=== PATIENT | female | born 1950 | race Caucasian/White ===

== ENCOUNTER 2017-02-17 07:46 | Emergency (ER) | payer MEDICARE, OTHER ==
[2017-02-17] MEDS ORDERED: ASPIRIN 81 MG TAB.CHEW PO ONE (07:53)
--- NOTE | 2017-02-17 07:59 | ERNOTE ---
Chest Pain/Cardiac HPI Chief Complaint: Chest Pain Time Seen by Provider: 02/17/17 07:52 Source: patient, RN notes reviewed Exam Limitations: no limitations Immunizations: IMMUNIZATION HX Immunizations Up to Date Yes History of Influenza Vaccine Yes Hx Pneumococcal Vaccination No Allergies/Adverse Reactions: Allergies No Known Allergies Allergy (Verified 02/17/17 08:08) Home Medications: HOME MEDICATIONS NK [No Home Medication] 02/17/17 [Last Taken Unknown] Narrative: Patient woke up with pain across her back, in a cold sweat. She had a pneumonia vaccination a week ago Sunday. She notes that her left arm hurt really bad a week ago yesterday (the day she received the vaccination), and has hurt ever since. She has not been using her left arm since that vaccination. She drove out here earlier, but the pain subsided so she and her spouse went back home. She then decided maybe she should get checked out after all, so they came back here and checked in. Her pain is gone now, but her left arm and shoulder up into her neck, still are in pain from the injection. Timing: resolved prior to arrival Severity/Quality: severe Location: back Chest Pain Radiation: shoulders Activities at Onset: sleep Nitro Today/Relief: no nitro taken today Aspirin Treatment Today: 81 mg x 4, provided by ED Associated Symptoms: Present: denies symptoms Prior Chest Pain/Cardiac Workup: Reports: no prior cardiac workup Prior Treatment: Reports: recently seen, treated by physician - Shanique Hilton Review of Systems - Review of Systems Constitutional: Present: recent illness - sore arm and shoulder since pneumonia vaccine. Absent: fever, chills, weakness EYE: Present: no symptoms reported ENT: Absent: ear pain, sore throat Respiratory: Absent: shortness of breath, cough Cardiology: Present: chest pain - tightness Gastrointestinal/Abdominal: Absent: nausea, vomiting, diarrhea, abdominal pain Genitourinary: Absent: frequency, pain, dysuria, hematuria Musculoskeletal: Present: back pain - bilateral and woke her up from sleep, muscle pain - left sided since pneumonia vaccine, muscle stiffness - left sided since pneumonia vaccine, neck pain - left sided since pneumonia vaccine Skin: Absent: rash, lesions, lumps Neurological: Present: anxiety. Absent: depressed Endocrine: Present: no symptoms reported Hematologic/Lymphatic: Present: no symptoms reported Psych: Present: anxiety - Patient's Past Medical History Patient History - Medical: No pertinent hx Patient History - Cardiac/Respiratory: No pertinent hx Patient History - Cancer: No Hx of Cancer Patient History - Surgical Procedures: Cholecystectomy, T & A Patient History - Other: None - Family History Mother Family History - Medical: , No pertinent hx Family History - Cardiac/Respiratory: No pertinent hx Father Family History - Medical: , No pertinent hx Family History - Cardiac/Respiratory: No pertinent hx, CVA/Stroke - Social History Abuse History: No History of abuse Psych History: No pertinent hx - Immunizations Immunizations Up to Date: Yes Hx Pneumococcal Vaccination: No History of Influenza Vaccine: Yes Physical Exam - Physical Exam General Appearance: Present: wd/wn, alert, no apparent distress Head Exam: Present: normal inspection, no evidence of injury Eye Exam: Normal inspection: bilateral, PERRL: bilateral, EOMI: bilateral Ears, Nose, Throat: Present: normal ENT inspection Neck: Present: limited range of motion - secondary to muscle spasms on left side Respiratory: Present: no respiratory distress, normal breath sounds, no accessory muscle use, chest nontender, lungs clear Cardiovascular/Chest: Present: regular rate, rhythm, no murmur, normal peripheral pulses Gastrointestinal/Abdominal: Present: normal bowel sounds, nontender, nondistended, soft, no organomegaly Back Exam: Present: normal inspection, normal range of motion Extremity Exam: Present: normal inspection, non-tender, normal range of motion, no edema Neurological Exam: Present: alert, oriented, normal mood/affect, no motor/ sensory deficits Skin Exam: Present: normal color, warm/dry Lymphatic Exam: Present: no adenopathy ED Progress - Results and Orders Patient's Lab Results:: I have reviewed the patient's lab results. Results and Orders: Laboratory Tests 02/17/17 02/17/17 08:00 08:00 WBC 6.4 RBC 4.56 Hgb 13.3 Hct 40.2 MCV 88.2 MCH 29.2 MCHC 33.1 RDW 12.5 Plt Count 172 MPV 9.5 Immature Gran % (Auto) 0.50 H Immature Gran # (Auto) 0.03 Neutrophils % 62.9 Lymphocytes % 23.2 Monocytes % 9.5 H Eosinophils % 3.3 H Basophils % 0.6 Nucleated RBC % 0.0 Neutrophils # 4.0 Lymphocytes # 1.5 Monocytes # 0.6 Eosinophils # 0.2 Absolute Basophils 0.0 Sodium 141 Plasma Sodium 141 Potassium 4.0 Chloride 104 Carbon Dioxide 30.3 Anion Gap 10.7 BUN 14 Creatinine 0.93 Est GFR (Non-Af Amer) 64 BUN/Creatinine Ratio 15.1 Random Glucose 97 Calcium 9.0 Calcium Adj for Albumin 9.1 Total Bilirubin 0.4 AST 20 ALT 20 Alkaline Phosphatase 68 Troponin I Less than 0.017 Total Protein 7.2 Albumin 3.5 Repeat Troponin is <0.017 - Vital Signs Patient's Vital Signs:: I have reviewed the patient's vital signs. - EKG EKG: NSR - rate of 66 bpm, nonspecific ST T wave changes, unchanged from - 03/03 EKG read: Interp. by me EKG Comments: [facility] PATIENT RADIOLOGY STUDY REPORT Patient Patient Name:ANNETTA FARMER Date: 1950 Sex: F Order Number: [id number] Unique Exam ID: [id number] Exam Requested: CXRPALAT - Chest PA Lateral * Date Scheduled: 02-17-2017 07:53 AM Study Priority: Requesting Service: Requesting Physician: Alexis Howard Reason for Exam: Chest Pain Radiological Report : [facility] [address] - [place] [address] NAME: ANNETTA FARMER : 1950 MR #: [id number] CC: Alexis Howard MD LOC: ADM DATE: X-RAY REPORT [id number] RAD/Chest PA Lateral * Exam Date: 02/17/2017 07:53 Ordering Physician: Alexis Howard HISTORY: Chest Pain TWO VIEW CHEST Comparison: NONE Technique: Upright frontal and lateral views of the chest were obtained. Findings: The cardiac silhouette is within normal limits of size. The mediastinum and hilum are with in normal limits. The lung johnson are clear. I do not see evidence for an infiltrate, effusion , definable pneumothorax, or pulmonary edema. IMPRESSION: 1. NO ACUTE CARDIOPULMONARY PROCESS. Electronically signed by Darnell Moore M.D.. Darnell Moore MD Dict: 02/17/17 1020 Typed: 02/17/17 1020/ - X-Ray X-Ray #1 X-Ray: chest Interpretation: Interp. 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
[2017-02-17] MEDS ORDERED: ASPIRIN 81 MG TAB.CHEW ONE (08:01)
[2017-02-17 08:10] LABS: Hematocrit 40.2 % (37.0-47.0); Hemoglobin 13.3 gm/dL (12.5-16.0); Mean Cell Volume 88.2 fl (78-100); Mean Corpuscular Hemoglobin 29.2 pg (27-31); Mean Corpuscular Hgb Conc 33.1 g/dl (32-36); Mean Platelet Volume 9.5 fl (6.0-9.5); Neutrophil % 62.9 % (42-75.0); Platelet Count 172 K/mm3 (150-450); Red Blood Count 4.56 M/mm3 (4.2-5.4); Red Cell Distribution Width 12.5 % (11.5-14.0); White Blood Count 6.4 K/mm3 (4.0-10.5)
[2017-02-17 08:26] LABS: ALT 20 U/L (19-67); AST 20 U/L (0-48); Albumin * 3.5 gm/dl (3.4-5.0); Alkaline Phosphatase * 68 U/L (50-170); Anion Gap 10.7 mmol/L (6.8-13.8); BUN/Creatinine Ratio 15.1 (9.0-21.6); Bilirubin, Total 0.4 mg/dL (0.0-1.1); Blood Urea Nitrogen 14 mg/dL (3-23); Ca. Corrected For Albumin 9.1 mg/dL (8.4-10.2); Carbon Dioxide 30.3 mmol/L (24-32.6); Chloride 104 mmol/L (97-106); Glucose * 97 mg/dL (70-110); Sodium 141 mmol/L (132-142); Total Protein 7.2 gm/dL (6.2-8.2); Troponin I Less than 0.017 ng/ml (0.00-0.10)
[2017-02-17 10:19] VITALS: BP 162/66
== END 2017-02-17 10:53 | disposition home or self-care (01) ==
LOC: ER 07:46
DX: R07.89 Other chest pain (principal); G54.0 Brachial plexus disorders

== ENCOUNTER 2017-04-04 06:55 | Day surgery (SDC) | payer MEDICARE, OTHER ==
[~2017-04-04 06:55] MED LIST: RINGER'S SOLUTION,LACTATED 1,000 ML IV PRN
[2017-04-04] MEDS ORDERED: RINGER'S SOLUTION,LACTATED 1,000 ML IV ONE (07:48)
[2017-04-04] MEDS ORDERED: RINGER'S SOLUTION,LACTATED 1,000 ML IV PRN (09:04)
--- NOTE | 2017-04-04 14:32 | OR ---
Operative Report - Dictated Report Narrative: OPERATIVE REPORT DATE OF OPERATION: 04/04/2017 PREOPERATIVE DIAGNOSIS: No prior dedicated: Studies POSTOPERATIVE DIAGNOSIS: 4 mm polyp at 125 cm (pathology pending(). Capacious redundant colon with exam only to 160 cm (presumed proximal transverse colon). OPERATION: Colonoscopy with hot biopsy forceps polypectomy at 125 cm SURGEON: Aamir Oliver MD ANESTHESIA: Shankar Abdi CRNA INDICATIONS FOR PROCEDURE: The patient is a 66-year-old female referred by Dr. Hilton. The patient has had no previous dedicated colon studies. There is no family history of colon cancer. FINDINGS: 4 mm polyp at 125 cm. Very capacious redundant colon with exam only accomplished to 160 cm (presumed proximal transverse colon ) NARRATIVE OF PROCEDURE: The patient was identified in the holding area, and prior to the administration of anesthetic, a multidisciplinary timeout was observed. With the patient in the left lateral position and after the administration of intravenous sedation, the perineum was inspected. There was no evidence of pilonidal disease or skin breakdown. The external appearance of the anus was normal. Sphincter tone was good. The flexible fiberoptic colonoscope was inserted into the rectum which was insufflated with air. The rectal mucosa and submucosal vascular pattern appeared normal, the prep was seen to be complete. The scope was advanced through the sigmoid colon, up the descending colon, and around the splenic flexure where the triangular haustral architecture of the transverse colon was seen. The scope was advanced across the transverse colon to approximately 125 cm where a 4 mm area of polypoid change was encountered. This was biopsied and then thoroughly destroyed with electrocautery. The site was seen to be complete and hemostatic. Scope was advanced proximally to a full 160 cm and despite the use of standard reduction maneuvers and gentle external manual compression on the abdomen further proximal progress could not be accomplished. The scope was withdrawn and readvanced on 3 occasions with similar results. Palpation identified the level as probable proximal transverse colon. The mucosa at this level appeared normal. The scope was then slowly withdrawn in a circular fashion so that all aspects of colonic mucosa distal to 160 cm were inspected. The colon was very capacious and character and redundant in course. The haustral architecture appeared well preserved throughout with no evidence of external compression. The mucosa and submucosal vascular pattern appeared normal, specifically there was no gross evidence to suggest colitis or inflammatory bowel disease and no AV malformations were seen. No gila diverticulosis was demonstrated. No additional polyps were encountered. The scope was gradually withdrawn to the level of the rectum. As much insufflated air as possible was removed. The scope was withdrawn from the patient and the procedure terminated. The patient tolerated the anesthetic and procedure well without complication and was transferred back to the ambulatory surgery area awake and in stable condition. The patient remained stable throughout a period of postoperative observation. She denied abdominal discomfort, was able to tolerate by mouth intake, and was up without assistance. I shared the operative findings with the patient and she was given copies of the photographs which appear in the medical record. She was discharged home with instructions not to engage in hazardous activity today , but may resume normal activity tomorrow, and advance diet as tolerated. She is to continue those medications as listed in the history and physical exam. I made arrangements to contact her with the biopsy reports and will make additional recommendations for treatment and follow-up based upon those results. It was explained that because the proximal colon was not seen, a completion barium enema would be necessary. The patient has had a biopsy today and so that procedure will need to be scheduled several weeks out to allow complete healing of the polypectomy site. Reviewed and electronically signed
[2017-04-04 14:58] VITALS: BP 127/68
== END 2017-04-04 06:56 | disposition home or self-care (01) ==
LOC: AMB 06:55
PROVIDERS: ATTEND Surgery
PROC: 0DBL8ZX Excision of Transverse Colon, Via Natural or Artificial Opening Endoscopic, Diagnostic (ICD-10-PCS; principal; 2017-04-04 07:45)
DX: Z12.11 Encounter for screening for malignant neoplasm of colon (principal); D12.3 Benign neoplasm of transverse colon; Z87.891 Personal history of nicotine dependence; Z68.30 Body mass index [BMI] 30.0-30.9, adult